=== PATIENT | female | born 1965 ===

== ENCOUNTER 2021-06-23 12:45 | Inpatient (IN) | payer OTHER ==
[~2021-06-23] VITALS: Ht 165.1 cm; Wt 59.9 kg
[2021-06-23] MEDS ORDERED: ROSUVASTATIN CAL5 MG PO (15:14)
[2021-06-23] MEDS ORDERED: ZESTRIL10 M1 PO (15:14)
== END 2021-07-09 10:30 | disposition home or self-care (01) | DRG 741 ==
LOC: OB/GYN 06-24 12:45 → O/R 07-07 07:12 → OB/GYN 07-07 07:12
PROVIDERS: ADMIT Specialist; ATTEND Specialist
PROC: 0UT20ZZ Resection of Bilateral Ovaries, Open Approach (ICD-10-PCS; 2021-07-07)
PROC: 0UT70ZZ Resection of Bilateral Fallopian Tubes, Open Approach (ICD-10-PCS; 2021-07-07)
PROC: 07BC0ZZ Excision of Pelvis Lymphatic, Open Approach (ICD-10-PCS; 2021-07-07)
PROC: 0DNW0ZZ Release Peritoneum, Open Approach (ICD-10-PCS; 2021-07-07)
PROC: 0DBU0ZZ Excision of Omentum, Open Approach (ICD-10-PCS; 2021-07-07)
PROC: 0UT90ZZ Resection of Uterus, Open Approach (ICD-10-PCS; principal; 2021-07-07 11:30)
DX: C54.1 Malignant neoplasm of endometrium (principal); N80.0 Endometriosis of uterus; N83.291 Other ovarian cyst, right side; N83.8 Other noninflammatory disorders of ovary, fallopian tube and broad ligament; D36.0 Benign neoplasm of lymph nodes